=== PATIENT | male | born 1990 | race Caucasian/White ===

== ENCOUNTER 2019-01-13 18:58 | Emergency (ER) | payer OTHER, SELFPAY ==
[2019-01-13 19:06] VITALS: BP 139/78; PULSE 75; RESP 14; TEMP 36.3; O2SAT 99
--- NOTE | 2019-01-13 19:10 | DI.RAD.S_ITS ---
PROCEDURE: XR FOOT LT MIN 3V INDICATIONS: pain since sunday playing football. bruising near 1st toe TECHNIQUE: 3 views of the foot were acquired. COMPARISON: None. FINDINGS: Bones: No fractures or dislocations. No suspicious bony lesions. Soft tissues: No tibiotalar joint effusion. Achilles tendon appears normal. IMPRESSION: No visualized acute fracture or dislocation. However, if clinical concern and/or pain persist, short interval imaging followup in 7-10 days is recommended, as occult injury cannot be definitively excluded. Dictated by: Nadia Peter M.D. on 01/13/2019 at 19:35 Approved by: Nadia Peter M.D. on 01/13/2019 at 19:36
--- NOTE | 2019-01-13 20:25 | ED_ITS ---
HPI - Extremity Injury (Lower) <JAMEL Washington - Last Filed: 01/14/19 02:25> General Chief Complaint: Extremity Injury, Lower Stated Complaint: LEFT FOOT INJURY Time Seen by Provider: 01/13/19 20:18 Source: patient Mode of arrival: ambulatory Limitations: no limitations History of Present Illness HPI Narrative: This is a 28-year-old male, nonsmoker, who presents with left toe pain, swelling and bruise. The patient reports he had inverted left foot 2 days ago while playing ball under grass bare feet. Patient noticed this morning swelling to his left toes and midfoot, mild discomfort with ambulation. 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 The patient denies previous recent injury on left foot. Related Data Home Medications Medication Instructions Recorded Confirmed No Known Home Medications 01/13/19 01/13/19 Allergies Allergy/AdvReac Type Severity Reaction Status Date / Time vancomycin AdvReac Intermediate Redness of Verified 01/13/19 19:09 Skin Review of Systems <JAMEL Washington - Last Filed: 01/14/19 02:25> Review of Systems General: Denies fever, chills, fatigue, malaise, sweats. HEENT: Denies sinus pain, ear pain, sore throat, difficulty swallowing, dizziness. Respiratory: Denies dyspnea, cough, wheezing, hemoptysis, sputum. Cardiovascular: Denies chest pain, palpitations, orthopnea, edema. Gastrointestinal: Denies nausea, vomiting, abdominal pain, diarrhea, constipation, melena. : Denies dysuria, frequency, incontinence, hematuria, urinary retention. Musculoskeletal: See HPI Skin: See HPI Neurologic: Denies weakness, headache, numbness, change in speech, confusion, seizures, incoordination. Psychiatric: No concerning psychosocial issues. 12-point review of systems is negative except for those stated above. PFSH <JAMEL Washington - Last Filed: 01/14/19 02:25> Medical History No significant past medical history (Acute) No significant past surgical history (Acute) Social History Smoking Status: Never smoker Social History Smoking Status: Never smoker Exam <JAMEL Washington - Last Filed: 01/14/19 02:25> Narrative Exam Narrative: General appearance: well developed, well nourished, in no acute distress. Head: normocephalic, atraumatic, no scalp lesions, non-tender. Eye: pupil equal, round. EOMI. Nose: nares patent. Oral: mucosa moist. Neck/Thyroid: neck supple, full range of motion, no visible masses. Skin: Ecchymosis to left toes and medial mid foot. no suspicious rashes, lesions over visible areas. Warm and dry. Heart: no clubbing, no cyanosis, no edema. Lungs: Breathing even and unlabored. No stridor. No accessory muscles used. Chest: normal shape and expansion. Abdomen: non-obese, non-distended. Neurologic: alert and oriented. Cognitive exam, ELIGIBILITY SPECIALIST and PNS grossly intact on informal exam. Psych: good eye contact, normal affect. Initial Vital Signs Initial Vital Signs: Vital Signs Temperature 97.4 F L 01/13/19 19:06 Pulse Rate 75 01/13/19 19:06 Respiratory Rate 14 01/13/19 19:06 Blood Pressure 139/78 01/13/19 19:06 Pulse Oximetry 99 01/13/19 19:06 Extrem Right lower extremity: normal to inspection and full ROM Left lower extremity: foot Details: normal capillary refill, abnormal to inspection, tenderness, toes with normal ROM, edema, ecchymosis and vascular exam Details: dorsalis pedis pulse present, posterior tibial pulse present and normal capillary refill; no unusual warmth, edema noted and no crepitus <Melchor Victoria DO - Last Filed: 01/14/19 06:24> Initial Vital Signs Initial Vital Signs: Vital Signs Temperature 97.4 F L 01/13/19 19:06 Pulse Rate 75 01/13/19 19:06 Respiratory Rate 14 01/13/19 19:06 Blood Pressure 139/78 01/13/19 19:06 Pulse Oximetry 99 01/13/19 19:06 Course <JAMEL Washington - Last Filed: 01/14/19 02:25> Orders Ordered: ED Orders 01/13/19 19:10 XR foot LT min 3V Stat Vital Signs - 8 hr 01/13/19 19:06 Temperature 97.4 F L Pulse Rate 75 Respiratory Rate 14 Blood Pressure 139/78 Pulse Oximetry 99 <Melchor Victoria DO - Last Filed: 01/14/19 06:24> Orders Ordered: ED Orders 01/13/19 19:10 XR foot LT min 3V Stat Vital Signs - 8 hr 01/13/19 19:06 Temperature 97.4 F L Pulse Rate 75 Respiratory Rate 14 Blood Pressure 139/78 Pulse Oximetry 99 MDM - Extremity Injury (Lower) <JAMEL Washington - Last Filed: 01/14/19 02:25> Differential Diagnosis Likely fracture of toe and other (Foot sprain, toe sprain, fracture of foot) Medical Records Attestation: I reviewed the patient's medical records. Imaging Data XR-Foot L: Radiologist's impression: Chart Viewer Diagnostics DATE TYPE STATUS AUTHOR Hx 01/13/19 19:10 Nadia Peter Michael B 28, M0 1990 [facility], ED.LOC - Main ED: R07 86.183kg Extremity Injury, Lower Search Chart No Data to Display Redness of Skin No Data to Display Today 19:06 Reginald Domingo 28 M 1990 [place] [address] XRay Report Signed Patient: Jose L,Reginald BMR#: [id number] : 1990Acct:[id number] Age/Sex: 28 / MDate of Service: 01/13/19 Loc: ED Accession Number: [id number] Procedure: XR foot LT min 3V Ordering Provider: Melchor Victoria D.O. PROCEDURE: XR FOOT LT MIN 3V INDICATIONS: pain since sunday playing football. bruising near 1st toe TECHNIQUE: 3 views of the foot were acquired. COMPARISON: None. FINDINGS: Bones: No fractures or dislocations. No suspicious bony lesions. Soft tissues: No tibiotalar joint effusion. Achilles tendon appears normal. IMPRESSION: No visualized acute fracture or dislocation. However, if clinical concern and/or pain persist, short interval imaging followup in 7-10 days is recommended, as occult injury cannot be definitively excluded. Dictated by: Nadia Peter M.D. on 01/13/2019 at 19:35 Approved by: Nadia Peter M.D. on 01/13/2019 at 19:36 [facility] Narrative Medical decision making narrative: This is a healthy 28-year-old male who is active duty [employer] member presents with left toes and foot swelling, pain, bruise after he injured 2 days ago after inverted his foot. Neurovascular exam was intact. ROM was intake and left foot and toes against resistance. Patient re ports pain is tolerable. He had not use ice pack or and stays at home since the injury. Foot x-ray indicates no fracture or dislocation or joint effusion. Patient provided with postop ortho shoes for comfort, advised to use RICE therapy for comfort. Advised to use Tylenol and/or Motrin as needed for pain. Patient provided with modified work note. Return precautions were discussed with patient. Patient agrees with treatment plan and no further questions were expressed. Discharge Plan Departure Patient Disposition: Home Clinical Impression: Sprain of left foot Qualifiers: Encounter type: initial encounter Qualified Code(s): S93.602A - Unspecified sprain of left foot, initial encounter Discharge Date/Time: 01/13/19 20:51 Interventions: ED Discharge Assessment Last Done: 01/13/19 20:51 Instructions: DI for Foot Sprain Activity Restrictions/Additional Instructions: You have been diagnosed with [left foot and toe sprain. You're x-ray test shows no acute findings such as fractures or dislocation today.]. What to do: *Take your medications as directed. He can take [id number] Tylenol and or ibuprofen as needed for pain and inflammation. You could use ice pack for next couple of days for swelling. Please elevated affected foot next couple of days. You're provided with postop, hard sole shoes for splint. *Follow up with your primary care provider next week, call for an appointment. Let them know you were seen in the ED and that we asked you to be seen in follow up. *Return to ED if you have any new, worsening, or concerning symptoms, such as [increasing pain, swelling, tingling numbness, weakness to your foot/toes, chest pain, breathing difficulty, any acute concerns]. Prescriptions: No Action No Known Home Medications RF: 0 Referrals: [facility] [Outside] Stand Alone Forms: Work Release Note <Melchor Victoria DO - Last Filed: 01/14/19 06:24> Cosign ED Attending Julietaature Attestation: I was immediately available in the department for consultation. Documentation has been reviewed. I agree with assessment and plan.
== END 2019-01-13 20:51 | disposition home or self-care (01) ==
PROVIDERS: Emergency Provider Nurse Practitioner Family
DX: S93.602A Unspecified sprain of left foot, initial encounter (principal); W01.0XXA Fall on same level from slipping, tripping and stumbling without subsequent striking against object, initial encounter
CPT/HCPCS: 73630; 99282; 99283